=== PATIENT | male | born 1995 | race Asian ===

== ENCOUNTER 2016-08-13 13:33 | Emergency (ER) | payer OTHER ==
[~2016-08-13] VITALS: Ht 180.3 cm; Wt 73.1 kg
[2016-08-13 13:37] VITALS: TEMP 36.7; Ht 180.3 cm; Wt 73.1 kg
--- NOTE | 2016-08-13 14:28 | EMERGENCY ROOM VISIT NOTE ---
History First contact with patient: 13:39 Chief Complaint: RASH Stated Complaint: SKIN RASH History of Present Illness The patient is a 21 year old male who presents to the Emergency Room with complaints of rash. The patient states he has had a rash for the last 3 months. The patient states that it is itchy and dry. He states that he noticed red dry areas that initially were on his arm. He states that the rash has spread to his chest, back, legs. He has been seen by the [facility] times. He has been treated for scabies. He has been on a steroid taper which seemed to help. He has also been on nystatin and steroid creams. The patient denies any change in environmental factors. He denies any fevers, chills, earache, sore throat. He denies any pain. Review of Systems A 10 system review of systems was completed with positives and pertinent negatives listed in the HPI. Past Medical/Surgical History Patient denies Social History Smoking Status: Never Smoker Occupation Status: [employer] Current/Historical Medications Scheduled Prednisone (Prednisone), 0 PO DAILY Physical Exam Vital Signs Date Time Temp Pulse Resp B/P Pulse Ox O2 Delivery O2 Flow Rate FiO2 08/13/16 15:41 60 111/77 98 Room Air 08/13/16 13:37 36.7 67 18 125/76 99 Room Air Physical Exam VITALS: Vitals are noted on the nurse's note and reviewed by myself. Vital signs stable. GENERAL: This is a 21-year-old male, in no acute distress, nondiaphoretic, well- developed well-nourished. SKIN: There is a diffuse rash over the body. There are macular hyperpigmented areas over the torso, arms and legs. There are also papular dry raised erythematous areas. There are no vesicles. There is no drainage. There is no tenting of the skin. Capillary reflex less than 2 seconds. HEAD: Normocephalic atraumatic. EARS: External auditory canals clear, tympanic membranes pearly luke without erythema or effusion bilaterally. EYES: Pupils equal round and reactive to light and accommodation. Conjunctivae without injection, sclerae without icterus. Extraocular movements intact. NOSE: Patent, turbinates without inflammation or discharge. MOUTH: Mucous membranes moist. Tonsils are not enlarged. Pharynx without erythema or exudate. Uvula midline. Airway patent. Tongue does not deviate. NECK: Supple without nuchal rigidity. No lymphadenopathy. No thyromegaly. Cervical spine is nontender. No JVD. HEART: Regular rate and rhythm without murmurs gallops or rubs. LUNGS: Clear to auscultation bilaterally without wheezes, rales or rhonchi. No retractions or accessory muscle use. MUSCULOSKELETAL: No muscle atrophy, erythema, or edema noted. Full range of motion in all extremities. Normal gait. Strength 5/5 throughout. NEURO: Patient was alert and oriented to person place and time. No focal neurological deficits. Medical Decision & Procedures Laboratory Results 08/13/16 14:20 Red Blood Count 5.04, Mean Corpuscular Volume 87.1, Mean Corpuscular Hemoglobin 31.3, Mean Corpuscular Hemoglobin Concent 36.0, Mean Platelet Volume 9.8, Neutrophils (%) (Auto) 52.3, Lymphocytes (%) (Auto) 34.2, Monocytes (%) (Auto) 8.6, Eosinophils (%) (Auto) 4.1, Basophils (%) (Auto) 0.6, Neutrophils # (Auto) 2.56, Lymphocytes # (Auto) 1.67, Monocytes # (Auto) 0.42, Eosinophils # (Auto) 0.20, Basophils # (Auto) 0.03 08/13/16 14:20 Test 08/13/16 14:20 White Blood Count 4.89 K/uL (4.8-10.8) Red Blood Count 5.04 M/uL (4.7-6.1) Hemoglobin 15.8 g/dL (14.0-18.0) Hematocrit 43.9 % (42-52) Mean Corpuscular Volume 87.1 fL (80-100) Mean Corpuscular Hemoglobin 31.3 pg (25-34) Mean Corpuscular Hemoglobin Concent 36.0 g/dl (32-36) Platelet Count 201 K/uL (130-400) Mean Platelet Volume 9.8 fL (7.4-10.4) Neutrophils (%) (Auto) 52.3 % Lymphocytes (%) (Auto) 34.2 % Monocytes (%) (Auto) 8.6 % Eosinophils (%) (Auto) 4.1 % Basophils (%) (Auto) 0.6 % Neutrophils # (Auto) 2.56 K/uL (1.4-6.5) Lymphocytes # (Auto) 1.67 K/uL (1.2-3.4) Monocytes # (Auto) 0.42 K/uL (0.11-0.59) Eosinophils # (Auto) 0.20 K/uL (0-0.5) Basophils # (Auto) 0.03 K/uL (0-0.2) RDW Standard Deviation 37.1 fL (36.4-46.3) RDW Coefficient of Variation 11.7 % (11.5-14.5) Immature Granulocyte % (Auto) 0.2 % Immature Granulocyte # (Auto) 0.01 K/uL (0.00-0.02) Anion Gap 6.0 mmol/L (3-11) Est Creatinine Clear Calc Drug Dose 130.5 ml/min Estimated GFR () 137.2 Estimated GFR (Non- 118.4 BUN/Creatinine Ratio 14.2 (10-20) Calcium Level 9.1 mg/dl (8.5-10.1) Total Bilirubin 0.6 mg/dl (0.2-1) Aspartate Amino Transf (AST/SGOT) 13 U/L (15-37) Alanine Aminotransferase (ALT/SGPT) 32 U/L (12-78) Alkaline Phosphatase 76 U/L (45-117) Total Protein 8.1 gm/dl (6.4-8.2) Albumin 4.3 gm/dl (3.4-5.0) Globulin 3.8 gm/dl (2.5-4.0) Albumin/Globulin Ratio 1.1 (0.9-2) ED Course The patient was seen and examined. Previous visits were reviewed. The patient does not have a fever or leukocytosis. He does not have any significant electrolyte abnormality. The patient presents to the emergency department with a nonspecific rash. This could represent a dermatitis. Pityriasis rosea is considered. The exact etiology is not clear at this time. He would need a follow-up appointment with dermatology. He has an appointment at the end of September but our immigration case manager were able to secure an earlier appointment on September 09. The patient will be placed on prednisone. The patient was also seen and examined by who agrees with the assessment and treatment plan. Medical Decision The differential diagnosis includes dermatitis, eczema, pityriasis, scabies, viral illness, allergic reaction, among others Impression Primary Impression: Rash and nonspecific skin eruption Departure Information Dispostion Home / Self-Care Condition GOOD Prescriptions Prednisone (Prednisone) 20 Mg Tab 0 PO DAILY, #18 TAB 3 DAILY FOR 3 DAYS, THEN 2 DAILY FOR 3 DAYS, THEN 1 DAILY FOR 3 DAYS. Prov: Jana Arriaga PA-C 08/13/16 Referrals No Doctor, Assigned Forms WORK / SCHOOL INSTRUCTIONS, HOME CARE DOCUMENTATION FORM, IMPORTANT VISIT INFORMATION Patient Instructions ED Dermatitis Non Specific Rash, My [facility] Additional Instructions prednisone as prescribed follow up with dermatology for further evaluation and management Return with worsening symptoms
[2016-08-13 14:54] LABS: BUN/CREATININE RATIO 14.2 (10-20); CALCIUM 9.1 mg/dl (8.5-10.1); CREATININE 0.91 mg/dl (0.60-1.40); POTASSIUM 3.9 mmol/L (3.5-5.1)
[2016-08-13 14:57] LABS: ALB/GLOB RATIO 1.1 (0.9-2)
[2016-08-13 14:59] LABS: BASO % 0.6 %; BASO ABS # 0.03 K/uL (0-0.2); COMPLETE YES; EOS % 4.1 %; HEMATOCRIT 43.9 % (42-52); IG% 0.2 %; LYMPH % 34.2 %; LYMPH ABS # 1.67 K/uL (1.2-3.4); MEAN CELL VOLUME 87.1 fL (80-100); MEAN CORPUSCULAR HEMOGLOBIN 31.3 pg (25-34); MEAN PLATELET VOLUME 9.8 fL (7.4-10.4); MONO % 8.6 %; NEUT % 52.3 %; PLATELET COUNT 201 K/uL (130-400); RED BLOOD COUNT 5.04 M/uL (4.7-6.1); WHITE BLOOD COUNT 4.89 K/uL (4.8-10.8)
--- NOTE | 2016-08-13 15:24 | EMERGENCY ROOM VISIT NOTE ---
ED Visit Note First contact with patient: 14:19 21-year-old male with a rash for the past 2-3 months. The patient was fully evaluated by Anna Marie Arriaga PA-C. Please see her note. Patient has a slightly raised macular non-erythematous rash on his arms back and legs. The patient has had some benefit from prednisone the past. The patient will need dermatologic follow-up. He is awaiting a scheduled appointment.
[2016-08-13] MEDS ORDERED: PRED20TA PO (15:28)
[2016-08-13 15:41] VITALS: BP 111/77; PULSE 60; O2SAT 98
== END 2016-08-13 15:47 | disposition home or self-care (01) ==
LOC: C.EDB 13:35 → C.EDD 15:47
DX: R21 Rash and other nonspecific skin eruption (principal)